=== PATIENT | female | born 1980 | race Caucasian/White ===

== ENCOUNTER 2016-12-28 17:15 | Emergency (ER) | payer SELFPAY ==
[2016-12-28 17:29] VITALS: BP 139/86; TEMP 97.1; O2SAT 99
--- NOTE | 2016-12-28 17:32 | ED.PDOC ---
History of Present Illness - General Chief Complaint: Upper Extremity Injury Stated Complaint: knot in wrist with pain Time Seen by Provider: 12/28/16 17:24 Source: patient, RN notes reviewed, Vital Signs reviewed Exam Limitations: no limitations - History of Present Illness Initial Comments: Patient comes in with c/o L wrist pain and a knot after a fall 3 weeks ago. Occurred: other - 3 weeks ago Pain - Upper Extremity: moderate: Wrist, right Method of Injury: fell Improving Factors: rest Worsening Factors: movement Allergies/Adverse Reactions: Allergies Codeine Allergy (Verified 12/28/16 17:29) Home Medications: Ambulatory Orders NK [NK] 12/28/16 Review of Systems - Review of Systems Constitutional: States: no symptoms reported Respiratory: States: no symptoms reported Cardiology: States: no symptoms reported Musculoskeletal: States: see HPI Skin: States: no symptoms reported Neurological: States: no symptoms reported All other Systems: No Change from Baseline Past Medical History (General) - Patient Medical History Hx Congestive Heart Failure: No Hx Diabetes: No Surgical History: cholecystectomy - Vaccination History Hx Influenza Vaccination: No - Social History Hx Tobacco Use: Yes - Female History Patient is a Female of Child Bearing Age (10 -59 yrs old): Yes Family Medical History - Family History Mother Family History: Unknown Living Status: Unknown Physical Exam - Physical Exam General Appearance: Alert, Comfortable, No apparent distress, Well Developed, Well Groomed, Well Hydrated, Well Nourished Cardiovascular/Respiratory: normal peripheral pulses Elbow/Forearm Exam: normal inspection, non-tender, no evidence of injury, normal ROM Wrist Exam: bone tenderness - Right wrist, nodules - cyst over volar aspect, pain, soft tissue tenderness, swelling Hand Exam: normal inspection, non-tender, no evidence of injury, normal ROM Neuro/Tendon: normal sensation, normal motor functions, normal tendon functions , no evidence tendon injury Mental Status: alert, oriented x 3 Skin Exam: normal color, warm/dry Comments: Vital Signs 12/28/16 17:25 Temperature 97.1 F L Pulse Rate [ 97 H Left Brachial] Respiratory 20 Rate Blood Pressure 139/86 [Left Arm] O2 Sat by Pulse 99 Oximetry Progress - EKG/XRAY/CT XRAY: Wrist: no fracture or dislocation per Rad Procedures - Splinting Right Wrist Pre-Made Type: velcro Splint: volar Pre-Proc Neuro Vasc Exam: normal Post-Proc Neuro Vasc Exam: normal Departure - Departure Clinical Impression: Ganglion cyst of volar aspect of right wrist Sprain of wrist, right Qualifiers: Encounter type: initial encounter Qualified Code(s): S63.501A - Unspecified sprain of right wrist, initial encounter Time of Disposition: 18:32 Disposition: Discharge to Home or Self Care Condition: Good Departure Forms: ED Discharge - Pt. Copy, Patient Portal Self Enrollment Instructions: DI for Wrist Sprain, Ganglion Cyst Diet: resume usual diet Activity: increase activity as tolerated Home Medications: Ambulatory Orders NK [NK] 12/28/16
--- NOTE | 2016-12-28 18:16 | RAD ---
PROCEDURE: Wrist,Right 3 Views CLINICAL HISTORY: pain/knot s/p fall 3 weeks ago INDICATION: Same as above COMPARISON: None. TECHNIQUE: 3.0 Views of the right wrist were done. FINDINGS: There is no evidence of acute fractures or dislocation involving the bones of the right wrist. There is no evidence of any periosteal reactions involving the evaluated bones of the wrist joint. There is no visualization of chondrocalcinosis in the region of the wrist joint. The wrist joint arches are well-maintained. There is no evidence of ulnar variance. There are no focal erosive bony changes. The joint spaces of the right wrist are relatively well-maintained. The bone mineralization is normal for patient's age and sex. The soft tissues are radiographically unremarkable. There is no visualization of any radiopaque foreign bodies. If the wrist pain persists, repeat films can be done in 7-10 days interval to rule out currently radiographically occult fractures. Alternatively an MRI of the wrist can be obtained to rule out any occult fractures or bone marrow edema. IMPRESSION: Negative for acute bony trauma involving the right wrist. Place of interpretation: [id number]. Electronically signed by: Reid Gibson MD 12/28/2016 6:14 PM CDT Workstation: [employer]
== END 2016-12-28 18:49 | disposition home or self-care (01) ==
LOC: ER 17:15
DX: M67.431 Ganglion, right wrist (principal); S63.501A Unspecified sprain of right wrist, initial encounter; Z88.6 Allergy status to analgesic agent; Z87.891 Personal history of nicotine dependence; X58.XXXA Exposure to other specified factors, initial encounter; Y92.9 Unspecified place or not applicable